=== PATIENT | male | born 1945 | race Caucasian/White ===

== ENCOUNTER 2025-02-25 09:12 | Outpatient (CLI) | payer MEDICARE, BC | END 2025-02-25 09:13 | disposition home or self-care (01) | LOC: CSHCT 09:12 | PROVIDERS: ATTEND Family Medicine | DX: K59.00 Constipation, unspecified (principal); R19.03 Right lower quadrant abdominal swelling, mass and lump; R10.31 Right lower quadrant pain; K57.30 Diverticulosis of large intestine without perforation or abscess without bleeding | CPT/HCPCS: 74177 ==

== ENCOUNTER 2025-04-06 10:11 | Outpatient (CLI) | payer MEDICARE, BC ==
[2025-04-06 11:36] LABS: #Basophils 0.05 10x3/uL (0.0-0.2); #Eosinophils 0.15 10x3/uL (0.0-0.5); #Monocytes 0.74 10x3/uL (0.0-1.1); #Neutrophils 3.41 10x3/uL (1.5-8.4); %Basophils 0.8 % (0.0-2.0); %Eosinophils 2.4 % (0.0-6.0); %Lymphocytes 30.2 % (18.0-47.0); %Monocytes 11.8 % (0.0-10.0); %Neutrophils 54.6 % (40.0-75.0); Hematocrit 41.1 % (38.8-50.0); Hemoglobin 13.7 g/dL (13.5-17.5); Mean Corpuscular Hemoglobin 30.8 pg (27.0-33.0); Mean Corpuscular Volume 92.4 fL (81.2-95.1); Platelet Count 287 10x3/uL (150-450); Red Blood Cell (RBC) Count 4.45 10x6/uL (4.32-5.72); White Blood Cell (WBC) Count 6.25 10x3/uL (3.5-10.5)
[2025-04-06 11:52] LABS: Anion Gap 13 mmol/L (10-20); BUN (Urea Nitrogen) 29 mg/dL (8.4-25.7); Calc. Creatinine Clearance 0 mL/min (70-130); Calcium 9.5 mg/dL (7.8-10.44); Carbon Dioxide 24 mmol/L (23-31); Chloride 105 mmol/L (98-107); Glucose 94 mg/dL (83-110); Potassium 4.6 mmol/L (3.5-5.1); Sodium 137 mmol/L (136-145)
== END 2025-04-06 10:12 | disposition home or self-care (01) ==
LOC: CSHLAB 10:11
PROVIDERS: ATTEND Surgery
DX: Z01.818 Encounter for other preprocedural examination (principal); K40.20 Bilateral inguinal hernia, without obstruction or gangrene, not specified as recurrent
CPT/HCPCS: 80048; 85025; 93005; 93010